=== PATIENT | female | born 1950 | race Hispanic/Latino ===

== ENCOUNTER 2016-10-17 08:50 | Emergency (ER) | payer BC ==
[2016-10-17 09:05] VITALS: TEMP 97.6; O2SAT 99
--- NOTE | 2016-10-17 09:31 | ED PDOC ---
Arrival/HPI - General Chief Complaint: Dizziness/Lightheaded Time Seen by Provider: 10/17/16 09:03 Historian: Patient - History of Present Illness Narrative History of Present Illness (Text): 10/17/16 09:26 66 year old female whose past medical history includes pacemaker with recent negative stress test presents to the emergency department complaining of double vision that began this morning at 07:20. Patient states she felt a little off balance when she woke up but thought it was because she recently rearranged her furniture. She states she felt fine on the bus to work but when she got out she began to see double vision.. Patient also reports she usually wears one contact but has not worn it for a while before today. She also thinks that she hasn't been sleeping well the past couple of days because of work. Denies dizziness or focal weakness/numbness. PMD: Dr. Miranda ([place], [place]) 10/17/16 16:26 Time/Duration: 1-3 hours Symptom Onset: Sudden Symptom Course: Resolved Modifying Factors (Text): None Past Medical History - Provider Review Nursing Documentation Reviewed: Yes - Infectious Disease Hx of Infectious Diseases: None - Cardiac Hx Pacemaker: Yes - Psychiatric Hx Substance Use: No - Surgical History Hx Appendectomy: Yes Other/Comment: Lump removed from breast. Toe surgery Family/Social History - Physician Review Nursing Documentation Reviewed: Yes Family/Social History: Unknown Family HX Smoking Status: Never Smoked Hx Alcohol Use: Yes Frequency of alcohol use: Daily Hx Substance Use: No Allergies/Home Meds Allergies/Adverse Reactions: Allergies No Known Allergies Allergy (Verified 10/17/16 09:06) Home Medications: Home Meds Medication Instructions Recorded Confirmed Methylphenidate [Ritalin] 5 mg PO PRN PRN 10/17/16 10/17/16 Review of Systems - Physician Review All systems were reviewed & negative as marked: Yes - Review of Systems Eyes: Vision Changes (Double vision) Neurological: Other (Off balance). absent: Dizziness, Focal Weakness, Speech Changes Physical Exam Vital Signs Reviewed: Yes Vital Signs Temp Pulse Resp BP Pulse Ox 10/17/16 11:46 97.6 F 59 L 16 131/84 99 10/17/16 08:53 97.6 F 65 18 142/72 99 Temperature: Afebrile Blood Pressure: Normal Pulse: Regular Respiratory Rate: Normal Appearance: Positive for: Well-Appearing, Non-Toxic, Comfortable Pain Distress: None Mental Status: Positive for: Alert and Oriented X 3 - Systems Exam Head: Present: Atraumatic, Normocephalic Pupils: Present: PERRL Extroacular Muscles: Present: EOMI Conjunctiva: Present: Normal Mouth: Present: Moist Mucous Membranes Neck: Present: Normal Range of Motion Respiratory/Chest: Present: Clear to Auscultation, Good Air Exchange. No: Respiratory Distress, Accessory Muscle Use Cardiovascular: Present: Regular Rate and Rhythm, Normal S1, S2. No: Murmurs Abdomen: Present: Normal Bowel Sounds. No: Tenderness, Distention, Peritoneal Signs Back: Present: Normal Inspection Upper Extremity: Present: Normal Inspection. No: Cyanosis, Edema Lower Extremity: Present: Normal Inspection. No: Edema Neurological: Present: GCS=15, CN II-XII Intact, Speech Normal, Motor Func Grossly Intact, Normal Sensory Function, Normal Cerebellar Funct, Gait Normal, Memory Normal Skin: Present: Warm, Dry, Normal Color. No: Rashes Psychiatric: Present: Alert, Oriented x 3, Normal Insight, Normal Concentration Medical Decision Making ED Course and Treatment: Impression: 66 year old female whose past medical history includes pacemaker with recent stress test presents to the emergency department complaining of double vision that began this morning at 07:20. Differential Diagnosis included but are not limited to: Double vision secondary to contact lenses vs medication reaction vs CVA Plan: -- CT Head, EKG -- Labs -- Reassess and disposition Progress Notes: CT Head Tso: Moi Thompson MD IMPRESSION: Normal CT of the Head 10/17/16 10:45 After removing right contact, patient states she no longer has double vision. Patient is able to get up without any symptoms. Patient ambulating without difficulty. 10/17/16 11:41 Patient states she feels better and is not having symptoms. Instructed patient to follow up with PMD and opthamologist or return if symptoms worsen. Patient agrees with plan for discharge. - Lab Interpretations Lab Results: 10/17/16 09:35 10/17/16 09:35 Lab Results 10/17/16 09:35: POC Glucose (mg/dL) 97 10/17/16 09:35: Sodium 140, Potassium 3.7, Chloride 106, Carbon Dioxide 27, Anion Gap 11, BUN 14, Creatinine 0.6, Est GFR ( Amer) > 60, Est GFR (Non- Af Amer) > 60, Random Glucose 96, Calcium 9.1, Total Bilirubin 0.6, AST 27, ALT 28, Alkaline Phosphatase 61, Total Protein 6.5, Albumin 3.7, Globulin 2.8, Albumin/Globulin Ratio 1.3 10/17/16 09:35: PT 11.5, INR 1.06, APTT 27.6 10/17/16 09:35: WBC 4.6, RBC 4.40, Hgb 13.1, Hct 39.2, MCV 89.1, MCH 29.8, MCHC 33.4, RDW 12.7, Plt Count 194, MPV 10.6, Gran % 47.5 L, Lymph % (Auto) 40.5 H, [place] % (Auto) 7.8 H, Eos % (Auto) 3.5, Baso % (Auto) 0.7, Gran # 2.18, Lymph # 1.9, [place] # 0.4, Eos # 0.2, Baso # 0.03 - RAD Interpretation Radiology Orders: 10/17/16 09:22 HEAD W/O CONTRAST [CT] Stat Full Stack Developer: Radiologist - EKG Interpretation Interpreted by ED Physician: Yes (EKG shows NSR at 69 BPM, otherwise normal) Type: 12 lead EKG NIHSS Scale ([place]) Time Performed: 09:03 - How Severe is the [place] Post tPA Level of Consciousness: 0=Alert LOC to Questions: 0=Both comments correct LOC to commands: 0=Obeys both correctly Best Gaze: 0=Normal Visual: 0=No visual loss Facial: 0=Normal Motor Arm - Left: 0=No drift Motor Arm - Right: 0=No drift Motor Leg - Left: 0=No drift Motor Leg - Right: 0=No drift Limb Ataxia: 0=Absent Sensory: 0=Normal Best Language: 0=No aphasia Dysarthia: 0=Normal articulation Extinction & Inattention (Neglect): 0=Normal, no object Score: 0 Risk Level: No Stroke Risk - Scribe Statement The provider has reviewed the documentation as recorded by the Gricel Smith Provider Scribe Attestation: All medical record entries made by the Gricel were at my direction and personally dictated by me. I have reviewed the chart and agree that the record accurately reflects my personal performance of the history, physical exam, medical decision making, and the department course for this patient. I have also personally directed, reviewed, and agree with the discharge instructions and disposition. Disposition/Present on Arrival - Present on Arrival Any Indicators Present on Arrival: No History of DVT/PE: No History of Uncontrolled Diabetes: No Urinary Catheter: No History of Decub. Ulcer: No History Surgical Site Infection Following: None - Disposition Have Diagnosis and Disposition been Completed?: Yes Diagnosis: Double vision Disposition: HOME/ ROUTINE Disposition Time: 11:41 Patient Plan: Discharge Condition: IMPROVED Additional Instructions: Mr Cotto, thank you for letting us take care of you today. Your provider was Dr. Boston. You were treated for Double Vision. The emergency medical care you received today was directed at your acute symptoms. If you were prescribed any medication, please fill it and take as directed. It may take several days for your symptoms to resolve. Return to the Emergency Department if your symptoms worsen, do not improve, or if you have any other problems. Please contact your doctor or call one of the physicians/clinics you have been referred to that are listed on the Patient Visit Information form that is included in your discharge packet. Bring any paperwork you were given at discharge with you along with any medications you are taking to your follow up visit. Our treatment cannot replace ongoing medical care by a primary care provider (PCP) outside of the emergency department. Thank you for allowing the [facility] team to be part of your care today. If you had an X-Ray or CT scan: A Radiologist will review the ED reading if any change in treatment is needed we will contact you. If you had a blood, urine, or wound culture: It will take several days for the results, if any change in treatment is needed we will contact you. If you had an STI test: It will take 48 hours for the results. Please call after 1 week if you have not heard back. Referrals: [email or web address], [Primary Care Provider] - Follow up with primary Vincent Ramsey MD [Staff Provider] - Follow up with primary Forms: [employer] (Lao)
[2016-10-17 09:49] LABS: ADD MANUAL DIFF? NO
[2016-10-17 09:58] LABS: BASO # 0.03 K/mm3 (0.0-2.0); BASO % 0.7 % (0.0-3.0); EOS # 0.2 (0.0-0.7); EOS % 3.5 % (1.5-5.0); GRAN # 2.18 (1.4-6.5); GRAN % 47.5 % (50.0-68.0); HEMATOCRIT 39.2 % (36.0-48.0); LYMPH # 1.9 (1.2-3.4); LYMPH % 40.5 % (22.0-35.0); MEAN CELL VOLUME 89.1 fL (80.0-105.0); MEAN CORPUSCULAR HEMOGLOBIN 29.8 pg (25.0-35.0); MEAN CORPUSCULAR HGB CONC 33.4 g/dl (31.0-37.0); MEAN PLATELET VOLUME 10.6 fl (7.0-11.0); MONO # 0.4 (0.1-0.6); MONO % 7.8 % (1.0-6.0); PLATELET COUNT 194 10^3/uL (120.0-450.0); RED CELL DISTRIBUTION WIDTH 12.7 % (11.5-14.5); WHITE BLOOD COUNT 4.6 10^3/ul (4.5-11.0)
--- NOTE | 2016-10-17 10:00 | CT ---
PROCEDURE: CT HEAD WITHOUT CONTRAST. HISTORY: double vision r/o cva COMPARISON: None available. TECHNIQUE: Axial computed tomography images were obtained through the head/brain without intravenous contrast. Radiation dose: Total exam DLP = 689 mGy-cm. This CT exam was performed using one or more of the following dose reduction techniques: Automated exposure control, adjustment of the mA and/or kV according to patient size, and/or use of iterative reconstruction technique. FINDINGS: HEMORRHAGE: No intracranial hemorrhage. BRAIN: No mass effect or edema. No atrophy or chronic microvascular ischemic changes. VENTRICLES: Unremarkable. No hydrocephalus. CALVARIUM: Unremarkable. PARANASAL SINUSES: Unremarkable as visualized. No significant inflammatory changes. MASTOID AIR CELLS: Unremarkable as visualized. No inflammatory changes. OTHER FINDINGS: None. IMPRESSION: Normal CT of the Head.
[2016-10-17 10:04] LABS: INR 1.06 (0.93-1.08); PARTIAL THROMBOPLASTIN TIME 27.6 Seconds (23.7-30.8)
[2016-10-17 10:58] LABS: ALB/GLOB RATIO 1.3 (1.1-1.8); ALKALINE PHOSPHATASE 61 U/L (38-133); ALT/SGPT 28 U/L (7-56); AST/SGOT 27 U/L (15-39); BILIRUBIN,TOTAL 0.6 mg/dL (0.2-1.3); BLOOD UREA NITROGEN 14 mg/dL (7-21); CALCIUM 9.1 mg/dL (8.4-10.5); CARBON DIOXIDE 27 mmol/L (21-33); CHLORIDE 106 mmol/L (98-107); GFR AFRICAN-AMERICAN > 60; GLUCOSE,RANDOM 96 mg/dL (70-110); POTASSIUM 3.7 mmol/L (3.6-5.0); SODIUM 140 mmol/L (132-148); TOTAL PROTEIN 6.5 g/dL (5.8-8.3)
[2016-10-17 11:47] VITALS: BP 131/84; PULSE 59; RESP 16
--- NOTE | 2016-10-17 16:50 | CARD ---
APPROVED REPORT EKG Measurement Heart [id number] <Conclusion> Normal sinus rhythm Incomplete right bundle branch block Borderline ECG
== END 2016-10-17 11:56 | disposition home or self-care (01) ==
LOC: ED 08:50
DX: H53.2 Diplopia (principal)